=== PATIENT | male | born 1980 | race Caucasian/White ===

== ENCOUNTER 2021-04-24 13:08 | Inpatient (IN) | payer BC ==
[~2021-04-24 13:08] MED LIST: Sodium Chloride 0.9% 1,000 ML ONE; fentaNYL 50 MCG/ML SDV ONE
[2021-04-24] MEDS ORDERED: fentaNYL 50 MCG/ML SDV IVPUSH PRN ×2 (13:10→19:00)
[2021-04-24] MEDS ORDERED: Acetaminophen 500 MG Tab PO ONE (13:10)
[2021-04-24] MEDS ORDERED: Sodium Chloride 0.9% 1,000 ML IV ONE (13:10)
[2021-04-24] MEDS ORDERED: fentaNYL 50 MCG/ML SDV IVPUSH STA (13:48)
[2021-04-24] MEDS ORDERED: Azithromycin 500 MG in Sodium Chloride 0.9% 250 ML IV SCH ×2 (14:00→19:00)
[2021-04-24] MEDS: cefTRIAXone 1 GM Vial IVPUSH SCH (14:01)
[2021-04-24] MEDS ORDERED: Iopamidol 755 Mg/ML 100 ML Bottle IVPUSH ONE (14:40)
[2021-04-24] MEDS: Acetaminophen/oxyCODONE 325-5 MG Tab PO PRN ×3 (15:48→23:45)
[2021-04-24] MEDS ORDERED: fentaNYL 50 MCG/ML SDV IVPUSH ONE (18:03)
--- NOTE | 2021-04-24 18:22 | EDM.PDOC ---
ED HPI GENERAL MEDICAL PROBLEM - General Chief Complaint: Chest Pain Stated Complaint: chest pain Time Seen by Provider: 04/24/21 13:08 Source of Information: Reports: Patient History Limitations: Reports: No Limitations - History of Present Illness INITIAL COMMENTS - FREE TEXT/NARRATIVE: Presented to the respiratory clinic with SOB, cough, severe right sided chest pain, tachycardia, cough. He tested negative for COVID in the clinic and had labs drawn that were abnormal. CXR is abnormal. Due to the hypoxia he was taken to the ER. Pt states that he has been on quarantine for close contact. Started quarantine on the . He had some migraines which are not unusual for him but they lasted longer than normal. On the he coughed up some mucus and had some blood in it. On the he presented to ER in [place] as he states he was having terrible "muscle spasms" in his right back that radiated to the right anterior chest. "They checked my urine for kidney stone and said I didn't have one" He was given a muscle relaxant and sent home. Wednesday and wednesday he felt "a little better". On Wednesday he started to cough more, and developed fever and then started having some SOB. Today he states that he felt really bad, had fever, coughing made pain in chest and back unbearable so came to the clinic. Had some mucus that was stuot with red streaks noted in it. In ER he was tachycardia in the 160's, Sats were initially 90-92 on room air and then went up to 96-97% with 3 liters. He was diaphoretic, respirations in 30- 40's. Fever was 104 degrees. He was given Fentanyl for severe pain that he was having in the right side of chest that was both posterior and anteriorly. He remained alert and oriented. CXR was reviewed with Dr. Gutierrez and by radiologist. He is felt to have pneumonia and abscess with pleural effusion in the right lung. Onset: Gradual Onset Date: 04/19/21 Duration: Getting Worse Location: Reports: Chest Quality: Reports: Sharp, Stabbing Worsens with: Reports: Breathing, Movement Associated Symptoms: Reports: Cough, Diaphoresis, Fever/Chills, Shortness of Breath Right Chest Pain Score (Numeric/FACES): 8 - Related Data Allergies Allergy/AdvReac Type Severity Reaction Status Date / Time No Known Allergies Allergy Verified 04/24/21 13:09 Home Meds: Home Meds Celecoxib 50 mg PO DAILY 04/24/21 [History] Pantoprazole 20 mg PO DAILY 04/24/21 [History] Past Medical History Gastrointestinal History: Reports: GERD Musculoskeletal History: Reports: Other (See Below) Other Musculoskeletal History: plantar fascitis Neurological History: Reports: Migraines Social & Family History - Tobacco Use Tobacco Use Status *Q: Former Tobacco User Used Tobacco, but Quit: Yes Month/Year Tobacco Last Used: 20 days - Caffeine Use Caffeine Use: Reports: Coffee ED ROS GENERAL - Review of Systems Review Of Systems: See Below Constitutional: Reports: Fever, Chills, Weakness, Fatigue, Diaphoresis HEENT: Reports: No Symptoms Respiratory: Reports: Shortness of Breath, Pleuritic Chest Pain, Cough Cardiovascular: Reports: Chest Pain. Denies: Edema GI/Abdominal: Reports: No Symptoms : Reports: No Symptoms Musculoskeletal: Reports: Back Pain Neurological: Reports: No Symptoms Psychiatric: Reports: No Symptoms ED EXAM, GENERAL - Physical Exam Exam: See Below Exam Limited By: No Limitations General Appearance: Alert, Severe Distress Ears: Normal External Exam, Normal Canal, Normal TMs Throat/Mouth: Normal Oropharynx Head: Atraumatic, Normocephalic Neck: Normal Inspection, Supple Respiratory/Chest: Normal Breath Sounds (normal breathe sounds on the left side. Right side has very decreased lung sounds throughout. ), Respiratory Distress, Other (Respirations in the 30-40's and labored. Oxygen applied and sats in the mid 90's now.) Cardiovascular: Tachycardia GI/Abdominal: Normal Bowel Sounds, Soft, Non-Tender Back Exam: Normal Inspection Extremities: Normal Inspection, Normal Range of Motion, Non-Tender, No Pedal Edema, Normal Capillary Refill Neurological: Alert, Oriented Skin Exam: Cool, Diaphoretic, Pallor Course - Vital Signs Last Recorded V/S: Last Vital Signs Temp 101.6 F H 04/24/21 19:24 Pulse 143 H 04/24/21 13:13 Resp 28 H 04/24/21 18:40 BP 108/56 L 04/24/21 18:40 Pulse Ox 96 04/24/21 18:40 - Orders/Labs/Meds Orders: Active Orders 24 hr Category Date Time Status Chest w Cont [CT] Stat Exams 04/24/21 13:54 Taken Acetaminophen/oxyCODONE [Percocet 325-5 MG] Med 04/24/21 15:39 Active 2 tab PO Q4H PRN cefTRIAXone [Rocephin] Med 04/24/21 14:00 Active 1 gm IVPUSH Q24H Medication Orders Acetaminophen (Acetaminophen 325 Mg Tab) 650 mg PO Q4H PRN PRN Reason: Pain (Mild 1-3)/fever Ceftriaxone Sodium (Ceftriaxone 1 Gm Vial) 1 gm IVPUSH Q24H [facility] Last Admin: 04/24/21 14:01 Dose: 1 gm Documented by: ROBERT Enoxaparin Sodium (Enoxaparin 40 Mg/0.4 Ml Syringe) 40 mg SUBCUT Q24H [facility] Last Admin: 04/24/21 19:46 Dose: 40 mg Documented by: ROBERT Fentanyl (Fentanyl 50 Mcg/Ml Sdv) 25 mcg IVPUSH Q4H PRN PRN Reason: Pain Sodium Chloride (Normal Saline) 1,000 mls @ 125 mls/hr IV ASDIRECTED [facility] Last Admin: 04/24/21 19:25 Dose: 125 mls/hr Documented by: ROBERT Azithromycin 500 mg/ Sodium (Chloride) 250 mls @ 250 mls/hr IV Q24H SHANKAR Ibuprofen (Ibuprofen 200 Mg Tab) 600 mg PO Q6H PRN PRN Reason: fever Last Admin: 04/24/21 19:24 Dose: 600 mg Documented by: ROBERT Oxycodone/Acetaminophen (Acetaminophen/Oxycodone 325-5 Mg Tab) 2 tab PO Q4H PRN PRN Reason: Pain (severe 7-10) Last Admin: 04/24/21 19:46 Dose: 2 tab Documented by: Admin: 04/24/21 15:48 Dose: 2 tab Documented by: CASSIDY Meds: Medications Generic Name Dose Route Start Last Admin Trade Name Freq PRN Reason Stop Dose Admin Acetaminophen 650 mg 04/24/21 18:55 Acetaminophen 325 Mg Tab PO Q4H PRN Pain (Mild 1-3)/fever Ceftriaxone Sodium 1 gm 04/24/21 14:00 04/24/21 14:01 Ceftriaxone 1 Gm Vial IVPUSH 1 gm Q24H SHANKAR Administration Enoxaparin Sodium 40 mg 04/24/21 20:00 04/24/21 19:46 Enoxaparin 40 Mg/0.4 Ml Syringe SUBCUT 40 mg Q24H SHANKAR Administration Fentanyl 25 mcg 04/24/21 19:00 Fentanyl 50 Mcg/Ml Sdv IVPUSH Q4H PRN Pain Sodium Chloride 1,000 mls @ 125 mls/hr 04/24/21 19:00 04/24/21 19:25 Normal Saline IV 125 mls/hr ASDIRECTED SHANKAR Administration Azithromycin 500 mg/ Sodium 250 mls @ 250 mls/hr 04/25/21 14:00 Chloride IV Q24H SHANKAR Ibuprofen 600 mg 04/24/21 18:58 04/24/21 19:24 Ibuprofen 200 Mg Tab PO 600 mg Q6H PRN Administration fever Oxycodone/Acetaminophen 2 tab 04/24/21 15:39 04/24/21 19:46 Acetaminophen/Oxycodone 325-5 Mg Tab PO 2 tab Q4H PRN Administration Pain (severe 7-10) Discontinued Medications Generic Name Dose Route Start Last Admin Trade Name Freq PRN Reason Stop Dose Admin Acetaminophen 1,000 mg 04/24/21 13:10 04/24/21 13:18 Acetaminophen 500 Mg Tab PO 04/24/21 13:11 1,000 mg ONETIME ONE Administration Ceftriaxone Sodium 1 gm 04/24/21 19:00 04/24/21 19:30 Ceftriaxone 1 Gm Vial IVPUSH Not Given Q24H SHANKAR Fentanyl 25 mcg 04/24/21 13:10 04/24/21 13:18 Fentanyl 50 Mcg/Ml Sdv IVPUSH 25 mcg Q6H PRN Administration Pain Fentanyl Confirm 04/24/21 12:50 04/24/21 13:38 Fentanyl 50 Mcg/Ml Sdv Administered 04/24/21 12:51 Not Given Dose 50 mcg .ROUTE .STK-MED ONE Fentanyl 25 mcg 04/24/21 13:48 04/24/21 13:52 Fentanyl 50 Mcg/Ml Sdv IVPUSH 04/24/21 13:49 25 mcg ONETIME STA Administration Fentanyl 25 mcg 04/24/21 18:03 04/24/21 18:09 Fentanyl 50 Mcg/Ml Sdv IVPUSH 04/24/21 18:04 25 mcg ONETIME ONE Administration Sodium Chloride 1,000 mls @ 999 mls/hr 04/24/21 13:10 04/24/21 13:19 Normal Saline IV 04/24/21 14:10 999 mls/hr .BOLUS ONE Administration Sodium Chloride Confirm 04/24/21 12:49 04/24/21 13:38 Normal Saline Administered 04/24/21 12:50 Not Given Dose 1,000 mls @ as directed .ROUTE .STK-MED ONE Azithromycin 500 mg/ Sodium 250 mls @ 250 mls/hr 04/24/21 14:00 04/24/21 14:02 Chloride IV 250 mls/hr Q24H SHANKAR Administration Azithromycin 500 mg/ Sodium 250 mls @ 250 mls/hr 04/24/21 19:00 04/24/21 19:30 Chloride IV Not Given Q24H SHANKAR Ibuprofen 600 mg 04/24/21 18:55 Ibuprofen 200 Mg Tab PO Q6H PRN Pain (mild 1-3) Iopamidol 100 ml 04/24/21 14:40 04/24/21 14:49 Iopamidol 755 Mg/Ml 100 Ml Bottle IVPUSH 04/24/21 14:41 100 ml ONETIME ONE Administration Oxycodone/Acetaminophen 2 tab 04/24/21 18:58 Acetaminophen/Oxycodone 325-5 Mg Tab PO Q4H PRN Pain (severe 7-10) - Re-Assessments/Exams Free Text/Narrative Re-Assessment/Exam: 04/24/[address] [facility], and [facility] and neither are able to accept pt as they have no bed. [address] Govea, pulmonology at [facility] to help with treatment of pt until we can transfer. He did request a CT chest to evaluate further, to start Rocephin, and zithromax, and that he would need to transfer to facility that can do thoracotomy most likely to clean out the abscess. 1338 I contracted the transfer center and reported on pt. They will attempt to find bed for pt that has thoracic surgeon available and probable intermediate ICU bed for him. Will hydrate, give antibiotics, control fever and pain until this can be accomplished. 04/24/21 1730- [place] [facility] transfer center contacted again and they have not been able to locate a bed in the state where a thoracic surgeon is located as he will need thoracostomy. CT report was faxed to the transfer Center. They will continue to attempt to find bed for the pt. Pt will be admitted to acute care here until bed can be found. He will remain on IV antibiotics, oxygen, pain meds and telemetry until placement found. Dr. Gutierrez aware. Departure - Departure Time of Disposition: 18:00 Disposition: Admitted As Inpatient 68 Condition: Serious Clinical Impression: Empyema of lung, Hypoxia Febrile Qualifiers: Fever type: due to other condition Qualified Code(s): R50.81 - Fever presenting with conditions classified elsewhere Pneumonia Qualifiers: Pneumonia type: due to unspecified organism Laterality: right Lung location: lower lobe of lung Qualified Code(s): J18.9 - Pneumonia, unspecified organism - Discharge Information *PRESCRIPTION DRUG MONITORING PROGRAM REVIEWED*: Not Applicable *COPY OF PRESCRIPTION DRUG MONITORING REPORT IN PATIENT MANFRED: Not Applicable Sepsis Event Note (ED) - Evaluation Sepsis Screening Result: Possible Sepsis Risk - Focused Exam Vital Signs: Vital Signs Temp Temp Pulse Resp BP Pulse Ox 04/24/21 16:00 100.4 F 24 H 96/64 97 04/24/21 15:01 99.4 F 30 H 99/64 97 04/24/21 14:34 99.6 F 26 H 118/61 96 04/24/21 14:14 101.4 F H 36 H 118/61 96 04/24/21 13:48 101.4 F H 04/24/21 13:34 102.5 F H 48 H 131/83 95 04/24/21 13:18 102.4 F H 04/24/21 13:13 102.4 F H 143 H 38 H 140/90 96 - Problem List & Annotations (1) Pneumonia SNOMED Code(s): 392012898 Code(s): J18.9 - PNEUMONIA, UNSPECIFIED ORGANISM Status: Acute Priority: High Current Visit: Yes Qualifiers: Pneumonia type: due to unspecified organism Laterality: right Lung location: lower lobe of lung Qualified Code(s): J18.9 - Pneumonia, unspecified organism (2) Empyema of lung SNOMED Code(s): 58203662 Code(s): J86.9 - PYOTHORAX WITHOUT FISTULA Status: Acute Priority: High Current Visit: Yes (3) Hypoxia SNOMED Code(s): 445987974 Code(s): R09.02 - HYPOXEMIA Status: Acute Priority: High Current Visit: Yes (4) Febrile SNOMED Code(s): 406648406 Code(s): R50.9 - FEVER, UNSPECIFIED Status: Acute Priority: High Current Visit: Yes Qualifiers: Fever type: due to other condition Qualified Code(s): R50.81 - Fever presenting with conditions classified elsewhere - Problem List Review Problem List Initiated/Reviewed/Updated: Yes - My Orders Last 24 Hours: My Active Orders 04/24/21 13:54 Chest w Cont [CT] Stat 04/24/21 14:00 cefTRIAXone [Rocephin] 1 gm IVPUSH Q24H 04/24/21 15:39 Acetaminophen/oxyCODONE [Percocet 325-5 MG] 2 tab PO Q4H PRN - Assessment/Plan Admission H&P: Please use this note as an admission H&P Last 24 Hours: My Active Orders 04/24/21 13:54 Chest w Cont [CT] Stat 04/24/21 14:00 cefTRIAXone [Rocephin] 1 gm IVPUSH Q24H 04/24/21 15:39 Acetaminophen/oxyCODONE [Percocet 325-5 MG] 2 tab PO Q4H PRN Plan: will continue to work with the transfer center to get placement for this pt where it is appropriate. Will admit to acute care at this time and give IV antibiotics and fluids and control his fever with meds as needed.
[2021-04-24] MEDS ORDERED: Acetaminophen 325 MG Tab PO PRN (18:55)
[2021-04-24] MEDS ORDERED: Ibuprofen 200 MG Tab PO PRN (18:55)
[2021-04-24] MEDS ORDERED: Acetaminophen/oxyCODONE 325-5 MG Tab PO PRN (18:58)
[2021-04-24] MEDS ORDERED: cefTRIAXone 1 GM Vial IVPUSH SCH (19:00)
[2021-04-24] MEDS: Ibuprofen 200 MG Tab PO PRN (19:24)
[2021-04-24] MEDS: Sodium Chloride 0.9% 1,000 ML IV SCH (19:25)
[2021-04-24] MEDS: Enoxaparin 40 MG/0.4 ML Syringe SUBCUT SCH (19:46)
[2021-04-25] MEDS: Sodium Chloride 0.9% 1,000 ML IV SCH ×2 (03:22→11:29)
[2021-04-25] MEDS: Acetaminophen/oxyCODONE 325-5 MG Tab PO PRN ×3 (05:28→18:37)
[2021-04-25] MEDS ORDERED: Codeine/Promethazine 10-6.25 MG/5 ML Syrup 5 ML UD Cup PO PRN ×2 (06:17→06:40)
[2021-04-25] MEDS ORDERED: Pantoprazole 40 MG Tab.CR PO SCH (07:00)
[2021-04-25 07:47] LABS: CHLORIDE,CL 98 mEq/L (98-106); SODIUM,NA 133 mEq/L (136-145)
[2021-04-25] MEDS: Ibuprofen 200 MG Tab PO PRN (08:45)
--- NOTE | 2021-04-25 12:06 | PN ---
DATE: 04/25/2021 S: Mr. Bryson is a 40-year-old male admitted yesterday by Stacey Mekhi after consultation with me about a large right-sided pneumonia with likely empyema and abscess in his lung. We are awaiting on transfer and has been difficult to facilitate due to lack of beds. This patient needs likely CT surgeon for drainage procedure and may be an open thoracotomy. He did spike a temp this morning of 102. Once his fever is down, he does look better. His tachycardia is improved as well and he is maintaining his sats around 95% on 3 L. Does have a lot of pain when he coughs. O: LUNGS: The patient has adequate air movement in the right apices, but otherwise none in the mid and base. Left lung is clear. CARDIAC: Tones are tachy, but regular. ABDOMEN: Soft. EXTREMITIES: He has no peripheral edema. ASSESSMENT: RIGHT-SIDED PNEUMONIA WITH ABSCESS, LIKELY EMPYEMA. P: We will continue with IV antibiotics. Fever control. Pain control. We are hoping for transfer this morning to a tertiary facility and patient understands the plan. ELLEN/OLIVER /[id number]
[2021-04-25] MEDS: cefTRIAXone 1 GM Vial IVPUSH SCH (13:53)
[2021-04-25] MEDS ORDERED: Azithromycin 500 MG in Sodium Chloride 0.9% 250 ML IV SCH (14:00)
[2021-04-25] MEDS ORDERED: cefTRIAXone 1 GM Vial IVPUSH SCH (18:45)
[2021-04-25] MEDS: Enoxaparin 40 MG/0.4 ML Syringe SUBCUT SCH (19:59)
--- NOTE | 2021-04-25 22:36 | DISCH ---
ADMISSION DIAGNOSIS: Pneumonia with large pleural effusion and pulmonary abscess, possible empyema. DISCHARGE DIAGNOSIS: 1. RIGHT-SIDED PNEUMONIA. 2. PULMONARY ABSCESS. 3. LARGE PLEURAL EFFUSION VERSUS EMPYEMA. 4. RESPIRATORY DISTRESS. HISTORY: The patient is a 40-year-old admitted on the date of admission by Stacey Gaming for pneumonia with large pleural effusion. The patient was saturating around 88% to 90% on room air. He was up to 95% on 3 L. His white count and CRP were markedly elevated. The patient was markedly tachypneic and tachycardic. We attempted to transfer him to Pulmonology for possible drainage of his effusion/empyema and documented abscess on the CT scan, but we could not find transfer bed. He ultimately was admitted to our facility for IV antibiotics and oxygen. HOSPITAL COURSE: The patient was stable while here. He did spike a temperature up to 102 on the morning of discharge, but for the most part was afebrile otherwise. His pulse came down into the low 100s, and he was saturating 94% to 95% on 3 L. Blood pressures were stable. Urine output was fine. We finally were able to get transfer to [facility] to the Medicine Service, and the patient agreed to go for more definitive care at a tertiary facility and possible open thoracostomy. He was transferred [facility] to [facility]. Please see orders. COMPLICATIONS: During stay were none. CONSULTATIONS: None. PROCEDURES: CT chest. DISPOSITION: Transfer [facility] to [facility]. ELLEN/OLIVER /[id number]
== END 2021-04-25 20:00 | DRG 720 ==
LOC: CC.ED 13:08 → UNDOADMIN 17:40 → CC.MS 17:40 → CC.ED 17:40 → CC.MS 18:55
PROVIDERS: ADMIT Family Medicine; ATTEND Family Medicine
DX: A41.9 Sepsis, unspecified organism (principal); J85.1 Abscess of lung with pneumonia; J90 Pleural effusion, not elsewhere classified; R06.03 Acute respiratory distress; K21.9 Gastro-esophageal reflux disease without esophagitis
CPT/HCPCS: 36415; 71260; 80053; 85025; 86140; 87070; 87205; 93005; 96365; 96375; 96376; 99285-25; A9270-GY; J0456; J0696; J1650; J3010; J7030; J7050; Q9967